=== PATIENT | male | born 1945 | race Caucasian/White ===

== ENCOUNTER → 2023-05-15 12:28 | Outpatient (CLI) | payer OTHER, SELFPAY ==
--- NOTE | 2023-05-15 | DI.ECHO.S_ITS ---
[facility] +---------+ : : [address] : [address] : : : : [id number] : : : : Phone: [phone]+ Echocardiogram Report + + :Name: TOVA SPRING Study Date: 05/15/2023 Height: 66 in : :[facility] ReadingLocation: Weight: 181 lb : : Gender: Male BSA: 1.9 m2 : :: 1945 Age: 77 yrs BP: 151/70 mmHg: :Reason For Study: Atherosclerotic Heart Disease of [place] : :Coronary Artery : :Ordering Physician: Crystal, : :Harish Performed By: Misa Avilez : :Referring: OXANA HENDRIX : + + Interpretation Summary There is moderate concentric left ventricular hypertrophy. The ejection fraction is estimated to be 60-65%. There is mild aortic stenosis. The peak aortic velocity is 2.55 m/sec. There is mild to moderate aortic regurgitation. There is mild mitral annular calcification. There is mild mitral regurgitation. There is a small pericardial effusion noted. There is a small left-sided pleural effusion. Procedure: A two-dimensional transthoracic echocardiogram with color flow and Doppler was performed. The study quality was technically adequate. There is no prior echocardiogram noted for this patient. The patient was in atrial fibrillation with heart rates between 55 bpm during the exam. Left Ventricle: The left ventricle is normal in size. There is moderate concentric left ventricular hypertrophy. The ejection fraction is estimated to be 60-65%. There are no focal wall motion abnormalities. Diastolic function could not be accurately assessed due to atrial fibrillation. Right Ventricle: The right ventricle grossly appears normal in size with probable normal systolic function. Atria: The left atrial size is normal. Right atrial size is normal. There is no Doppler evidence for an interatrial shunt. Mitral Valve: The mitral valve leaflets appear moderately thickened, but open well. There is mild mitral annular calcification. There is mild mitral regurgitation. Aortic Valve: The aortic valve is trileaflet. The aortic valve is moderately calcified. There is mild aortic stenosis. The peak aortic velocity is 2.55 m/sec. The aortic valve mean gradient is 16 mmHg. There is mild to moderate aortic regurgitation. Tricuspid Valve: The tricuspid valve is normal. There is no tricuspid stenosis. There is trace tricuspid regurgitation. Pulmonary artery pressures cannot be estimated because of the lack of a measurable TR jet velocity. Pulmonic Valve: The pulmonic valve leaflets are thin and pliable; valve motion is normal. There is no pulmonic valvular stenosis. There is trace pulmonic regurgitation. Great Vessels: The aortic root is mildly dilated. The ascending aorta is normal in size. The pulmonary artery is normal size. The IVC is dilated (diameter is greater than 2.1 cm) yet it collapses greater than 50% with a sniff. This suggests a right atrial pressure of 8 mm Hg. Pericardium/ Pleura There is a small pericardial effusion noted. There is a small left-sided pleural effusion. MMode/2D Measurements & Calculations LVIDd: 4.1 cm LVOT diam: 1.9 cm LVIDs: 2.7 cm Ao root diam: 3.8 cm FS: 34.1 % asc Aorta Diam: 3.4 cm IVSd: 1.9 cm LVPWd: 1.6 cm LV gonzalez. diameter/BSA (cm/m^2): 2.1 LV sys. diameter/BSA (cm/m^2): 1.4 LA A2 area: 19.9 cm2 RA long axis: 5.4 cm LA A4 area: 14.3 cm2 RA area: 18.4 cm2 LA length (vol): 5.6 cm RA vol: 54.1 ml LA vol: 43.3 ml RA : 28.2 ml/m2 LA vol index: 22.6 ml/m2 IVC diam: 2.2 cm RVD1 (basal): 4.5 cm LVLs ap4: 6.5 cm LVLd ap2: 6.9 cm TAPSE_phl: 1.2 cm LVLs ap2: 6.3 cm Doppler Measurements & Calculations Ao V2 max: 255.5 cm/sec LVOT Max Thomas: 128.0 cm/sec Ao V2 mean: 183.3 cm/sec LV V1 max P.6 mmHg Ao max P.0 mmHg LV V1 VTI: 29.8 cm Ao mean P.3 mmHg ANA MARIA(I,D): 1.4 cm2 Ao V2 VTI: 58.3 cm ANA MARIA(V,D): 1.4 cm2 sev ratio: 0.51 ANA MARIA indexed to BSA (cm^2/m^2): 0.76 MVA(VTI): 1.8 cm2 PA pr(Accel): 34.9 mmHg MV V2 mean: 94.9 cm/sec SV(LVOT): 84.5 ml MV mean P.7 mmHg MV V2 VTI: 47.3 cm AV VR_phl: 0.50 ANA MARIA(VTI)/BSA_phl: 0.76 Electronically signed by: Malka Mendez on Reading Physician:05/15/2023 04:07 PM
== END ==
PROVIDERS: Referring Provider Chiropractor; Visit Provider Chiropractor
DX: I25.10 Atherosclerotic heart disease of native coronary artery without angina pectoris (principal)
CPT/HCPCS: 93306